=== PATIENT | male | born 1950 | race Caucasian/White ===

== ENCOUNTER 2024-09-17 08:13 | Day surgery (SDC) | payer MEDICARE, OTHER ==
[~2024-09-17 08:13] MED LIST: Lactated Ringers 1,000 ML IV SCH
[2024-09-17] MEDS ORDERED: Midazolam 1 MG/ML 2 ML SDV ONE (09:00)
[2024-09-17] MEDS ORDERED: Ketamine 200 MG/20 ML MDV ONE (09:00)
[2024-09-17] MEDS ORDERED: Propofol 200 MG/20 ML SDV ONE (09:00)
[2024-09-17] MEDS ORDERED: fentaNYL 50 MCG/ML SDV ONE (09:00)
[2024-09-17] MEDS ORDERED: Flumazenil 0.1 MG/ML 5 ML MDV ONE (09:00)
[2024-09-17 11:58] VITALS: BP 111/63; PULSE 64
== END 2024-09-17 10:34 | disposition home or self-care (01) ==
LOC: CC.SDS 08:13
PROVIDERS: ATTEND Family Medicine
DX: Z12.11 Encounter for screening for malignant neoplasm of colon (principal); D12.2 Benign neoplasm of ascending colon; D12.3 Benign neoplasm of transverse colon; K57.30 Diverticulosis of large intestine without perforation or abscess without bleeding; N40.1 Benign prostatic hyperplasia with lower urinary tract symptoms; R35.1 Nocturia; E78.5 Hyperlipidemia, unspecified; L82.1 Other seborrheic keratosis; Z91.048 Other nonmedicinal substance allergy status; Z79.899 Other long term (current) drug therapy
CPT/HCPCS: 00811; 99100; J2250; J2704; J3010; J3490